=== PATIENT | female | born 1960 | race Caucasian/White ===

== ENCOUNTER → 2016-09-03 | Outpatient (CLI) | payer OTHER | LOC: KOH-I 12:58 | DX: M19.042 Primary osteoarthritis, left hand (principal); Z12.31 Encounter for screening mammogram for malignant neoplasm of breast; M85.842 Other specified disorders of bone density and structure, left hand; M24.842 Other specific joint derangements of left hand, not elsewhere classified | CPT/HCPCS: 73140 ==

== ENCOUNTER → 2021-09-13 | Outpatient (CLI) | payer OTHER | LOC: MAMO 10:00 | DX: Z12.31 Encounter for screening mammogram for malignant neoplasm of breast (principal) | CPT/HCPCS: 77063; 77067 ==

== ENCOUNTER → 2021-10-11 | Outpatient (CLI) | payer OTHER | LOC: MAMO 13:20 | DX: R92.8 Other abnormal and inconclusive findings on diagnostic imaging of breast (principal) | CPT/HCPCS: 76642-RT; 77066; G0279 ==